=== PATIENT | female | born 1980 | race Caucasian/White ===

== ENCOUNTER → 2023-11-24 12:57 | Outpatient (REF) | payer BC, SELFPAY | LOC: WDC 12:57 | PROVIDERS: ATTENDING PHYSICIAN Obstetrics & Gynecology | DX: Z12.31 Encounter for screening mammogram for malignant neoplasm of breast (principal) | CPT/HCPCS: 77063; 77067 ==

== ENCOUNTER → 2024-12-26 12:22 | Outpatient (REF) | payer BC, SELFPAY | LOC: WDC 12:22 | PROVIDERS: ATTENDING PHYSICIAN Nurse Practitioner Family | DX: Z12.31 Encounter for screening mammogram for malignant neoplasm of breast (principal) | CPT/HCPCS: 77063; 77067 ==

== ENCOUNTER → 2025-01-08 09:30 | Outpatient (REF) | payer BC, SELFPAY | LOC: WDC 09:30 | PROVIDERS: ATTENDING PHYSICIAN Nurse Practitioner Family | DX: R92.8 Other abnormal and inconclusive findings on diagnostic imaging of breast (principal) | CPT/HCPCS: 76642 ==

== ENCOUNTER 2025-09-04 07:11 | Emergency (ER) | payer BC, SELFPAY ==
[2025-09-04 07:14] VITALS: BP 119/71
[2025-09-04 07:22] VITALS: BMI 19.6
--- NOTE | 2025-09-04 07:33 | ED.GENMED ---
History of Present Illness
General
Chief Complaint: Back Pain
Source: patient
Exam Limitations: none
Time Seen by Provider: 09/04/25 07:21
Nursing documentation reviewed up to this point in time: agreed with
History of Present Illness
History of Present Illness:
The patient is a pleasant 45-year-old female who reports 5 years of right lower back pain radiating into her buttock area. Patient reports that she generally sees a chiropractor who helps to control the flare ups of pain. Patient reports she
generally takes ibuprofen to help with the pain. Patient reports that she has ' good days' and ' bad days' when the pain gets better and worse. Patient reports it is unclear as to why the pain flares up. Patient does report that she is active,
exercises and does yoga and perhaps this may flare up her pain. Patient presents to the ED today because she states that since yesterday the pain in her right lower back is particularly bad again. Patient reports it radiates into her right buttock
area. She denies any difficulty controlling her urine and stool. She denies weakness and numbness of her legs. She reports she is able to walk but hunches over due to pain. Patient reports that she took 800 mg of ibuprofen an hour and a half
prior to arrival but it has not alleviated her pain. Patient reports that she is due to have an MRI at the end of the month and is requesting that we do an MRI today in the ED. She denies fevers and chills. She reports that when she has the pain,
it is common for her to have an on the right side, which she has today. Patient reports that she recently had x-rays done of her low back and right hip ' that did not show a whole lot to explain the pain'. Patient reports that she attends physical
therapy for her sciatica back pain.
Past History
Past History
ED Past Medical History: Other (Right sided sciatica back pain)
ED Past Surgical History: Other
Social History
Tobacco: Other
Alcohol: Other
Drug: Other
Personal:
Living: with family
Employment: Other
Family History
Family History: Other
Review of Systems
Review of Systems
Allergies reviewed?: Yes
All Other Systems: ROS reviewed and negative except as documented in HPI and ROS
Constitutional: Reports no symptoms
EENT: Reports no symptoms
Respiratory: Reports no symptoms
Cardiac: Reports no symptoms
ABD/GI: Reports no symptoms
: Reports no symptoms
Musculoskeletal: Reports back pain
Skin: Reports no symptoms
Neurological: Reports no symptoms
Endocrine: Reports no symptoms
Hematologic/Lymphatic: Reports no symptoms
Psychiatric: Reports no symptoms
Phy Exam
Physical Exam
Physical Exam:
Physical Exam
General: no apparent distress, not acutely ill
Neck: supple.
Heart: s1/s2 regular rate and rhythm, no murmur. equal radial pulses.
Lungs: no acute respiratory distress. clear bilaterally
Abdomen: Soft, nontender, no pulsatile mass
Neuro: alert and oriented. no focal neurological deficits. No saddle anesthesia. 5 out of 5 strength in all extremities. Equal sensation in all extremities bilaterally
Skin: no rash
Psychiatric: well kept. interactive and cooperative
Extremities: no edema. no calf tenderness. negative homans. good distal pulses
Course
Orders/Labs/Results
Orders:
Orders
09/04/25 07:33
Prednisone [Deltasone] 40 mg PO NOW STA
Vital Signs
Initial and Last Documented VS:
Initial Vital Signs
Temp Pulse Resp BP Pulse Ox
97.8 F 80 18 119/71 99
09/04/25 07:14 09/04/25 07:14 09/04/25 07:14 09/04/25 07:14 09/04/25 07:14
Last Documented Vital Signs
Temp Pulse Resp BP Pulse Ox
97.8 F 80 18 119/71 99
09/04/25 07:14 09/04/25 07:14 09/04/25 07:14 09/04/25 07:14 09/04/25 08:02
MDM/Problems Addressed
Differential Diagnosis Includes:
Acute on chronic right-sided sciatica, bursitis of right hip, musculoskeletal low back pain
MDM/Problems Addressed:
Patient presents with acute on chronic right low back pain radiating into the buttock area
Chronic conditions affecting care:
Chronic right-sided sciatica
Acute Exacerbation and/or Progression of Chronic Illness:
Patient likely has acute exacerbation of right sided sciatica
*Pulse Oximetry
SaO2: 99
Oxygen Mode of Delivery: Room air
Patient hypoxic: no
*EKG
Interpreted by ED Provider?: NA
*Medical Practitioners Interpretation
Rate: Medical Practitioners- N/A
*Critical Care Note
Total Time (30-74mins, 75-104mins- exclusive of procedures): Not Applicable
Data Reviewed
Review of Other/Old Records Reveals: Labs (Hemoglobin 10.3 in 2019)
Source: patient and spouse
Further Testing Considered But Not Given:
I considered ordering patient an L-spine x-ray, however, patient reports that she recently had x-rays that showed nothing significant and the distribution of pain that patient is presenting with today is very similar to what she has had in the past.
Additionally, given that patient has no midline spinal tenderness, and additionally is able to walk, I do not feel that x-rays would be beneficial
Patient Management
Social determinants of health affecting care: Living situation and Strong social support
Update Note
Update Note:
Patient's Олег Kate called to speak to me at 7:55 AM. He explained to me that he is extremely disappointed that I am not ordering the patient an MRI emergently in the ED. I explained to the patient that because her presentation is not
life-threatening (i.e. because there is no sign of spinal cord compression or neurological deficit) that there is not an indication to order an MRI emergently. I explained to him that MRI of the ED is reserved for those cases. Patient's
told me that ' if anything emergent is found' that he will ' consider malpractice '. We did give patient's a phone number for an outpatient MRI center in [place] that may have an earlier appointment. I did encourage him to call multiple
MRI facilities to see if appointment could be moved up. I did explain to the patient that I am trying to work within standard of care
Patient has been able to get up and walk. There is no sign of cauda equina. Given patient has no fevers or chills I am not suspicious of spinal abscess
ED Attending Note
-
Portions of this chart may have been created with voice recognition software.� Occasional wrong word or��sound alike� substitutions may have occurred due to the inherent limitations of voice recognition software.
Discharge Plan
Departure
Patient Disposition: Home (Routine Discharge)
Date of Disposition: 09/04/25
Time of Disposition: 07:33
Patient with high blood pressure during this ER visit?: No
Condition: Good
Covid-19: Not Applicable
Discharge Problem:
Low back pain, Sciatic nerve pain
Instructions: Sciatica (DC), BLOOD PRESSURE
Prescriptions:
New
prednisone 10 mg tablet
10 mg PO DAILY 6 Days Qty: 12 0RF
Rx Instructions:
Take 30 mg on day 1 and day 2
Take 20 mg on day 3 and day 4
Take 10 mg on day 5 and day 6
diazepam [Valium] 5 mg tablet
5 mg PO BID PRN (Reason: muscle spasm) Qty: 7 0RF
No Action
acetaminophen 325 MG tablet
650 mg PO Q4HPRN PRN (Reason: mild pain) 0RF
ibuprofen 600 MG tablet
600 mg PO Q6HPRN PRN (Reason: moderate pain/cramps) Qty: 60 0RF
Interventions
Interventions:
*Risk Screen - Suicide Last Done: 09/04/25 07:14
*General Assessment Last Done: 09/04/25 07:14
*Neglect/Abuse Screening Last Done: 09/04/25 07:14
*ED- Fall Risk Assessment Last Done: 09/04/25 07:14
*ED COVID-19 Vaccine History Last Done: 09/04/25 07:14
*ED Influenza Vaccine History Last Done: 09/04/25 07:14
*Nursing Disposition Last Done: 09/04/25 07:50
ED-Musculoskeletal Assessment Last Done: 09/04/25 07:26
Discharge Date and Time
Discharge Date/Time: 09/04/25 08:08
Print Language: GREENLANDIC
[2025-09-04] MEDS: DELTASONE 40 MG PO (07:39)
== END 2025-09-04 08:08 | disposition home or self-care (01) ==
LOC: EMR 07:11
PROVIDERS: EMERGENCY PHYSICIAN Emergency Medicine; FAMILY PHYSICIAN Nurse Practitioner Adult Health
DX: M54.50 Low back pain, unspecified (principal); M54.40 Lumbago with sciatica, unspecified side; Y93.42 Activity, yoga
CPT/HCPCS: 99282